=== PATIENT | male | born 1995 | race Caucasian/White ===

== ENCOUNTER 2020-10-10 11:42 | Outpatient (NON) | payer BC, OTHER, SELFPAY ==
[2020-10-10 22:00] LABS: SARS-CoV-2 RNA PCR Positive
== END 2020-10-10 11:43 ==
PROVIDERS: PCP Family Medicine; Visit Provider Physician Assistant
DX: U07.1 COVID-19 (principal)
CPT/HCPCS: 87635; C9803; U0003

== ENCOUNTER 2024-12-11 14:49 | Outpatient (CLI) | payer BC, SELFPAY ==
--- NOTE | ~2024-12-11 | CT_ITS ---
EXAMINATION: CT sinus wo con DATE: 12/11/2024 15:00 INDICATION: Chronic sinusitis TECHNIQUE: Computed tomography (CT) of the paranasal sinuses was performed without intravenous contra st. The dose-length product was 282.66 mGy-cm. Automated exposure control and iterative reconstructio n technique were employed. COMPARISON: None FINDINGS: Leftward nasal septal deviation. Ostiomeatal units are patent. Small mucous retention cyst of the right maxillary sinus. No significant mucoperiosteal reaction. No air-fluid levels. There is a small mucous retention cyst of the right ethmoid sinus. Mastoids are pneumatized. Mild mucosal thick ening of the left maxillary sinus. IMPRESSION: 1. Mild left maxillary sinus disease with small mucous retention cyst of the right maxillary and ethm oid sinuses. Reviewed, dictated and finalized at location L. RAM OR PROJECT ADMINISTRATOR IMPRESSION: 1. Mild left maxillary sinus disease with small mucous retention cyst of the ri ght maxillary and ethmoid sinuses.
== END 2024-12-11 14:50 | disposition home or self-care (01) ==
LOC: MICIMG 14:50
PROVIDERS: PCP Family Medicine; Visit Provider Student in an Organized Health Care Education/Training Program
DX: J32.0 Chronic maxillary sinusitis (principal); J34.1 Cyst and mucocele of nose and nasal sinus
CPT/HCPCS: 70486

== ENCOUNTER 2024-12-17 10:13 | Emergency (ER) | payer BC, SELFPAY ==
[2024-12-17 10:26] VITALS: BP 143/91; PULSE 77; RESP 16; TEMP 37.2; O2SAT 97
[2024-12-17 10:35] LABS: Add Urine Microscopic? NO; Appearance Urine Clear (Clear); Bilirubin Urine Negative (Negative); Blood Urine Negative (Negative); Color Urine Yellow (Yellow); Glucose Urine UA Negative (Negative); Ketones Urine Negative (Negative); Leukocyte Esterase Ur Negative LEU/UL (Negative); Nitrate Urine Negative (Negative); Protein Urine Negative (Negative); Urobilinogen Urine 0.2 mg/dL (<2.0); pH Urine 7.5 (5.0-9.0)
[2024-12-17 10:47] LABS: Eosinophils Percent Auto 0.9 % (0-4.4); Hematocrit 38.1 % (42.0-52.0); Hemoglobin 13.8 g/dL (14.0-18.0); Immature Granulocyte Absolute 0.01 K/mm3 (0.00-0.031); Immature Granulocyte Percent A 0.2 % (0-0.5); Lymphocytes Absolute Auto 1.61 K/mm3 (0.9-3.2); Lymphocytes Percent Auto 37.4 % (18.3-44.2); Mean Corpuscular HGB Conc 36.2 g/dl (32-36); Mean Corpuscular Hemoglobin 31.8 pg (26-34); Mean Corpuscular Volume 87.8 fl (80-100); Mean Platelet Volume 9.5 fl (7.4-10.4); Monocytes Absolute Auto 0.5 K/mm3 (0.1-0.6); Monocytes Percent Auto 11.1 % (2.6-8.5); Neutrophils Absolute Auto 2.2 K/mm3 (1.3-6.7); Neutrophils Percent Auto 50.4 % (45.5-73.1); Platelet Count Result 209 k/mm3 (150-375); Red Blood Count 4.34 M/mm3 (4.6-6.20); White Blood Count 4.3 K/mm3 (4.5-10.0)
--- NOTE | 2024-12-17 10:49 | ED.ABDPAIN ---
HPI - Abdominal Pain General Chief Complaint: Abdominal Pain Stated Complaint: abd pain & bowel problems since 12/14 Time Seen by Provider: 12/17/24 10:17 Source: patient Mode of arrival: ambulatory Limitations: no limitations History of Present Illness HPI narrative: This is a 29-year-old male that presents to the emergency department for mid abdominal pain. Ongoing over the last couple of days. Reports associated loose stools. Denies fevers, vomiting. Related Data Allergies Allergy/AdvReac Type Severity Reaction Status Date / Time No Known Allergies Allergy Verified 12/17/24 10:40 Review of Systems Review of Systems: CONSTITUTIONAL: Denies fever GASTROINTESTINAL: Reports abdominal pain, nausea, and diarrhea. GENITOURINARY: Denies dysuria All systems reviewed & are unremarkable except as noted in HPI and below PMFSH Past Medical History Medical History (Updated 12/17/24 @ 12:17 by Virginia Stringer PA-C) Essential (primary) hypertension (01/02/17) Anxiety Family History Family History Father Hypertension Social History Social History Social History: Single Smoking status: Never smoker Second hand tobacco smoke exposure: No Alcohol intake: current Drinks per week: 2 Substance use: never Substance use type: does not use Living arrangements: with family Occupation/Education: occupation Gender identity (if verbalized by the patient): Male Sexual Orientation (if Verbalized by the Patient): Straight or Heterosexual Exam Narrative: GENERAL: Well-appearing, well-nourished, and in no acute distress. HEAD: Normocephalic, atraumatic. EYES: EOMI. CHEST: Clear to auscultation. No respiratory distress. No wheezes rales or rhonchi HEART: Regular rate and rhythm. No murmur heard. Normal peripheral pulses. ABDOMEN: Soft, nondistended, normal active bowel sounds. Mild tenderness to palpation throughout the right lower abdomen, without guarding EXTREMITIES: Normal range of motion. No edema. SKIN: Warm, dry, no rash. NEURO: No focal deficits. Alert and oriented x3. PSYCH: Normal mood and affect Course Course Emergency Course: patient updated on his workup and agrees with plan of care Consultations Consultation #1: Spoke with Dr. Dueñas. Recommends 3.375 mg dose of Zosyn in the ER. Augmentin 500 mg 3 times daily for 1 week. Follow up in clinic Date: 12/17/24 Vital Signs Vital signs: Vital Signs Temperature 98.9 F 12/17/24 10:26 Pulse Rate 77 12/17/24 10:26 Respiratory Rate 16 12/17/24 10:26 Blood Pressure 143/91 H 12/17/24 10:26 Pulse Oximetry 97 12/17/24 10:26 Oxygen Delivery Room Air 12/17/24 10:26 Temperature 98.9 F 12/17/24 10:26 Pulse Rate 77 12/17/24 10:26 Respiratory Rate 16 12/17/24 10:26 Blood Pressure 143/91 H 12/17/24 10:26 Pulse Oximetry 97 12/17/24 10:26 Oxygen Delivery Room Air 12/17/24 10:26 MDM - Abdominal Pain MDM Narrative Medical decision making narrative: Patient presents the emergency department for mid/right-sided abdominal pain. He is afebrile and nontoxic appearing. Cbc without leukocytosis. Metabolic panel with mild elevation in total bili and ALT, similar to previous labs. Urine without evidence of infection. CT abdomen pelvis indeterminate for appendicitis. Spoke with Dr. Dueñas. Recommends 3.375 mg dose of Zosyn in the ER. Augmentin 500 mg 3 times daily for 1 week. Follow up in clinic. patient updated on his workup and agrees with plan of care. He was given strict return precautions Differential Diagnosis Differential diagnosis: Likely acute appendicitis and other (IBS) Lab Data Attestation: I reviewed the patient's lab results. 12/17/24 10:41 12/17/24 10:41 Labs: Lab Results 12/17/24 12/17/24 Range/Units 10:26 10:41 WBC 4.3 L (4.5-10.0) K/mm3 RBC 4.34 L (4.6-6.20) M/mm3 Hgb 13.8 L (14.0-18.0) g/dL Hct 38.1 L (42.0-52.0) % MCV 87.8 (80-100) fl MCH 31.8 (26-34) pg MCHC 36.2 H (32-36) g/dl RDW 12.0 (11.5-14.5) % Plt Count 209 (150-375) k/mm3 MPV 9.5 (7.4-10.4) fl Immature Gran % (Auto) 0.2 (0-0.5) % Neut % (Auto) 50.4 (45.5-73.1) % Lymph % (Auto) 37.4 (18.3-44.2) % [place] % (Auto) 11.1 H (2.6-8.5) % Eos % (Auto) 0.9 (0-4.4) % Baso % (Auto) 0.0 L (0.2-1.2) % Lymph # (Auto) 1.61 (0.9-3.2) K/mm3 [place] # (Auto) 0.5 (0.1-0.6) K/mm3 Eos # (Auto) 0.0 (0-0.3) K/mm3 Baso # (Auto) 0.0 (0.0-0.1) K/mm3 Abs Immat Gran (auto) 0.01 (0.00-0.031) K/mm3 Absolute Neuts (auto) 2.2 (1.3-6.7) K/mm3 Absolute Nucleated RBC 0.000 (0.0-0.012) K/mm3 Nucleated RBC % 0.0 (0.0-0.2) % Sodium 140 (137-145) mmol/L Potassium 3.9 (3.4-5.0) mmol/L Chloride 102 (98-107) mmol/L Carbon Dioxide 27 (22-30) mmol/L Anion Gap 11 (4-12) mmol/L BUN 13 (9-20) mg/dL Creatinine 0.72 (0.7-1.3) mg/dL Estim Creat Clear Calc 155 ml/min Estimated GFR > 60 (59 - ) Glucose 103 (65-110) mg/dL Calcium 9.6 (8.4-10.2) mg/dL Total Bilirubin 1.8 H (0.2-1.3) mg/dL AST 31 (17-59) U/L ALT 74 H (6-50) U/L Alkaline Phosphatase 48 (38-126) U/L Total Protein 7.0 (6.3-8.2) g/dL Albumin 4.3 (3.5-5.1) g/dL Lipase 40 (23-300) U/L Urine Color Yellow (Yellow) Urine Appearance Clear (Clear) Urine pH 7.5 (5.0-9.0) Ur Specific [place] 1.010 (1.001-1.035) Urine Protein Negative (Negative) mg/dL Urine Glucose (UA) Negative (Negative) mg/dL Urine Ketones Negative (Negative) mg/dL Ur Blood (Man) Negative (Negative) Urine Nitrate Negative (Negative) Urine Bilirubin Negative (Negative) Urine Urobilinogen 0.2 (<2.0) mg/dL Leukocyte Esterase Rfl Negative (Negative) LOLA/UL Imaging Data Radiologist's impression: ITS Impressions Abdomen/Pelvis CT 12/17/24 11:34 IMPRESSION: 1. Appendiceal diameter of 9 mm, which is indeterminate for acute appendicitis. 2. Right inguinal hernia containing fat. Critical Care Time Critical Care Time Critical Care Time: No Discharge Plan Discharge Clinical Impression: Abnormal abdominal CT scan Patient Disposition: Home, Self-Care Condition: Stable Instructions: Antibiotic Form, Abdominal Pain (ED) Additional Instructions: Return to the ER if you experience fever, abdominal pain with nausea and vomiting, you are unable to keep down liquids or solids, or any other symptoms that are concerning to you Remain well hydrated. Take oral antibiotics as prescribed Follow up with general surgery Patient Language: [place] Prescriptions: New amoxicillin-pot clavulanate 500-125 mg tablet 1 tablet PO Q8H 7 Days Qty: 21 0RF No Action dexamethasone 4 mg tablet 4 mg PO BID Qty: 24 0RF Rx Instructions: 4mg tablet PO; 1 and a half tabs BID x4days, then 1 tab BID x4days, then half tab BID x4days Follow-up/Referrals: Julius Maki MD [Primary Care Provider] -
[2024-12-17 10:57] LABS: Alanine Aminotransferase 74 U/L (6-50); Albumin Level 4.3 g/dL (3.5-5.1); Alkaline Phosphatase 48 U/L (38-126); Anion Gap 11 mmol/L (4-12); Aspartate Amino Transferase 31 U/L (17-59); Bilirubin,Total 1.8 mg/dL (0.2-1.3); Blood Urea Nitrogen 13 mg/dL (9-20); Calcium 9.6 mg/dL (8.4-10.2); Carbon Dioxide 27 mmol/L (22-30); Chloride 102 mmol/L (98-107); Estimated CRCL calculation 155 ml/min; Estimated Glomerular Filt Rate > 60; Glucose 103 mg/dL (65-110); Lipase 40 U/L (23-300); Potassium 3.9 mmol/L (3.4-5.0); Sodium 140 mmol/L (137-145)
[2024-12-17 12:26] VITALS: BP 132/77; PULSE 64; RESP 16; TEMP 36.5; O2SAT 98
[2024-12-17] MEDS: ACETAMINOPHEN 500 MG TABLET 1000 MG PO (12:31)
[2024-12-17] MEDS: PIPERACILLN/TAZ 3.375GM/NS50ML 3.375 GM/50 ML BAG IVPB (12:31)
[2024-12-17 12:38] VITALS: BP 137/85; PULSE 70; RESP 20; O2SAT 98
== END 2024-12-17 12:40 | disposition home or self-care (01) ==
PROVIDERS: Emergency Provider Physician Assistant; PCP Family Medicine
DX: R93.3 Abnormal findings on diagnostic imaging of other parts of digestive tract (principal); K40.90 Unilateral inguinal hernia, without obstruction or gangrene, not specified as recurrent; I10 Essential (primary) hypertension
CPT/HCPCS: 36415; 74177; 80053; 81003; 83690; 85025; 96365; 99284; A9270; J2543; Q9967

== ENCOUNTER 2024-12-24 09:32 | Outpatient (CLI) | payer BC, SELFPAY ==
--- NOTE | ~2024-12-24 | CT_ITS ---
CLINICAL INDICATION: Periumbilical abdominal pain COMPARISON: 12/17/2024. TECHNIQUE: Multiple contiguous axial images of the abdomen and pelvis were performed without the admi nistration of intravenous contrast The dose-length product (DLP) was 576.82 mGy-cm. Automated exposure control and iterative reconstruction technique were employed. FINDINGS/OBSERVATIONS: Visualized lower thorax: The bilateral lung bases are clear. The heart is of normal size, without pericardial effusion. Small hiatal hernia is present. Liver: The liver demonstrates homogeneous attenuation and is not enlarged measuring 14 cm in longitudinal di mension. Gallbladder and biliary system: The gallbladder is only minimally distended, and otherwise unremarkable. Pancreas: Limited evaluation of the pancreas secondary to the lack of intravenous contrast. Spleen: The spleen demonstrates homogeneous attenuation and is not enlarged measuring 11 cm in longitudinal d imension. Kidneys: The bilateral kidneys are unremarkable, without hydronephrosis or renal calculi. Adrenal glands: Unremarkable. Gastrointestinal tract: Colonic diverticulosis without surrounding inflammatory change. Fecal stasis within the colon. Appendix: The appendix is within the upper limits of normal for caliber measuring anywhere between 6 and 8 mm ( axial series, images 104 through 120). No significant surrounding inflammatory change. Vasculature: Unremarkable. Lymph nodes: Scattered nonpathologically enlarged and morphologically benign appearing lymph nodes within the retr operitoneum or at the root of the mesentery, a nonspecific finding in a patient of this age. Pelvic structures: The bladder is decompressed, and otherwise unremarkable. The prostate gland is not enlarged. Body wall and musculoskeletal: Small fat-containing umbilical hernia. No significant degenerative disease within the lower thoracic or lumbosacral spine. IMPRESSION: The appendix is within the upper limits of normal for size measuring anywhere from 6 to 8 mm in calib er without surrounding inflammatory change. Small fat-containing umbilical hernia. Reviewed, dictated and finalized at location A. TRUCTION ESTIMATOR IMPRESSION: The appendix is within the upper limits of normal for size measuring anywhere f rom 6 to 8 mm in caliber without surrounding inflammatory change. Small fat-containing umbilical hernia.
--- OUTSIDE RECORDS SUMMARY | 2024-12-24 10:30 | XMS_ITS | Clinical Summary ---
Author Organization [facility] [employer] Address [address] [place] [address] Care Team Providers Care Nurse Practitioner Per Diem Name Role Phone Julius Maki MD Primary Care Provider [phone] Source Comments [facility] [employer],non-owned Affiliates and Associated Physician Practices is amultiple site organization consisting of ambulatory clinics and hospital sitesin [place], [place]. This disclosure is being madepursuant to the Care Everywhere program and may not contain all information available regarding this patient. Last updated 18.[facility] [employer] Allergies No known active allergies Medications * Be aware that medications may not be up to date on this document. Alwaysverify current medications with the patient. Medication Sig Dispensed Refills Start Date End Date Status trimethoprim-sulfamet hoxazole (SEPTRA DS) 800-160 MG tablet Take 1 Tab by mouth 2 times daily. Active hyoscyamine (LEVSIN/SL) 0.125 MG tablet Dissolve 1 Tab under the tongue every 4 hours as needed for Spasms. 120 Tab 5 02/06/2013 Active Active Problems Problem Noted Date Diagnosed Date IBS (irritable bowel syndrome) 02/06/2013 Diarrhea 05/08/2011 Rectal bleeding 12/19/2010 Abdominal pain, generalized 12/19/2010 Social History Tobacco Use Types Packs/Day Years Used Date Smoking Tobacco: Never Assessed Sex and Gender Information Value Date Recorded Sex Assigned at Not on file Gender Identity Not on file Sexual Orientation Not on file Last Filed Vital Signs Vital Sign Reading Time Taken Comments Blood Pressure 106/60 02/06/2013 9:48 AM CDT Pulse - - Temperature - - Respiratory Rate - - Oxygen Saturation - - Inhaled Oxygen Concentration - - Weight 82 kg (180 lb 11.2 oz) 02/06/2013 9:48 AM CDT Height 183.4 cm (6' 0.21 ) 02/06/2013 9:48 AM CD T Body Mass Index 24.37 02/06/2013 9:48 AM CDT Plan of Treatment Health Maintenance Due Date Last Done Comments HIV SCREENING 2009 HEPATITIS C SCREENING 06/30/2012 DTAP/TDAP/TD VACCINES (1 - Tdap) 2013 HEPATITIS B VACCINE (1 of 3 - 19+ 3-dose series) 2013 COVID-19 VACCINE (1 - 2023-2 5 season) 2024 INFLUENZA VACCINE (#1) 2024 DEPRESSION SCREENING 10/21/2024 ZOSTER VACCINE (1 of 2) 2044 HIB VACCINE Aged Out No longer eligi ble based on patient's age to complete this topic HPV VACCINE Aged Out No longer eligi ble based on patient's age to complete this topic MENINGOCOCCAL (Group B) VACCINE Aged Out No longer eligible based on patient's age to complete this topic MENINGOCOCCAL VACCINE Aged Out No kristopher maricruz eligible based on patient's age to complete this topic PNEUMOCOCCAL VACCINE Aged Out No long er eligible based on patient's age to complete this topic Care Teams Nurse Practitioner Per Diem Relationship Specialty Start Date End Date Julius Maki MD [address] [place] [address] PCP - General Family Medicine 12/12/12
--- OUTSIDE RECORDS SUMMARY | 2024-12-24 10:30 | XMS_ITS | Encounter Summary ---
Author Organization [facility] Address [address] [place] [address] Care Team Providers Care Manager Department Name Role Phone Julius Maki MD Primary Care Provider [phone] Encounter Details Date Type Department Care Team (Late st Contact Info) Description 04/26/2023 Lab Requisition [facility] - DermPath Lab [address] [place] [id number] Ghulam Rios MD [address] [place] [address] Social History Tobacco Use Types Packs/Day Years Used Date Smoking Tobacco: Never Assessed Sex and Gender Information Value Date Recorded Sex Assigned at Not on file Gender Identity Not on file Sexual Orientation Not on file documented as of this encounter Plan of Treatment Not on file documented as of this encounter Procedures Procedure Name Priority Date/Time Associated Diagnosis Comments DERMATOPATHOLOGY Routine 04/26/2023 12:0 0 AM CDT documented in this encounter Results * DERMATOPATHOLOGY (04/26/2023 12:00 AM CDT) Case Report Dermatopathology Report Case: [id number] Authorizing Provider: Ghulam Rios MD Collected: 04/26/2023 12:00 AM Ordering Location: [facility] DermPath Lab Received: 04/27/2023 08:39 AM Pathologist: Xiomara Lilly MD Specimens: A) - Skin, right scalp B) - Skin, post scalp 12:22 PM CDT DERMATOPATHOLOGY LABORATORY Final Diagnosis Specimen A. SKIN, right scalp: INTRADERMAL MELANOCYTIC NEVUS (D22.4) Specimen B. SKIN, post scalp: COMPOUND MELANOCYTIC NEVUS (D22.4) 3 12:22 PM CDT DERMATOPATHOLOGY LABORATORY Clinical History A: Nevus. Path# [id number] B: Nevus. Path# [id number] 3 12:22 PM CDT DERMATOPATHOLOGY LABORATORY Gross Description Specimen A: Received is one formalin filled container labeled with the patient's name and designated right scalp. The specimen consists of a shave biopsy measuring [id number] and another piece of tissue measuring [id number]. Jar 0. Specimen B: Received is one formalin filled container labeled with the patient's name and designated post scalp. The specimen consists of a shave biopsy measuring [id number]. Jar 0. 3 12:22 PM CDT DERMATOPATHOLOGY LABORATORY Microscopic Description Specimen A. SKIN, right scalp: There are nests of cytologically bland melanocytes within the dermis that mature with depth. Specimen B. SKIN, post scalp: There are nests of melanocytes at the dermal-epidermal junction and within the dermis. 3 12:22 PM CDT DERMATOPATHOLOGY LABORATORY Disclaimer An external and internal positive and negative controls are appropriate for the histochemical, immunohistochemical and immunofluorescence stain(s) in this case (if any), except where stated explicitly. The performance characteristics of the stain(s) cited in this report were developed and its performance characteristic determined by the Dermatopathology Laboratory at [facility], directed by Dr. Swapnil Dumont. These tests need not be, and therefore are not, approved by the [place] Food and Drug Administration. The tests are used for clinical purposes. Billing Codes Specimen Charges Stain Charges 63278 72018 1 1 3 12:22 PM CDT DERMATOPATHOLOGY LABORATORY Embedded Images 3 12:22 PM CDT DERMATOPATHOLOGY LABORATORY Pathology/Cytology TISSUE SPECIMEN FROM SKIN / Unknown 04/26/2023 04/27/2023 8:39 AM CDT Miscellaneous samples (specimen) TISSUE SPECIMEN FROM SKIN / Unknown 04/26/2023 04/27/2023 8:39 AM CDT Ghulam Rios MD LAB - PATHOLOGY/CYTO LOGY ORDERABLES DERMATOPATHOLOGY LABORATORY [facility] - Department of Dermatology [address], [address] [phone] documented in this encounter Visit Diagnoses Not on filedocumented in this encounter Care Teams Manager Department Relationship Specialty Start Date End Date Julius Maki MD [address] [place] [id number] PCP - General Family Medicine 12/12/12 documented as of this encounter
--- OUTSIDE RECORDS SUMMARY | 2024-12-24 10:30 | XMS_ITS | Referral Summary ---
Author Organization [facility] [employer] Address [address] [place] [address] Care Team Providers Care Resource Development Manager Name Role Phone Julius Maki MD Primary Care Provider [phone] Source Comments [facility] [employer],non-owned Affiliates and Associated Physician Practices is amultiple site organization consisting of ambulatory clinics and hospital sitesin [place], [place], [place] and [place]. This disclosure is being madepursuant to the Care Everywhere program and may not contain all information available regarding this patient. Last updated 18.[facility] [employer] Allergies No known active allergies Medications * [...] 02/06/2013 9:48 AM CDT Plan of Treatment Not on file Care Teams Resource Development Manager Relationship Specialty Start Date End Date Julius Maki MD [address] [place], [place] [id number] PCP - General Family Medicine 12/12/12
[2024-12-24 12:42] LABS: Basophils Percent Auto 0.2 % (0.2-1.2); Eosinophils Absolute Auto 0.1 K/mm3 (0-0.3); Eosinophils Percent Auto 1.1 % (0-4.4); Hematocrit 40.6 % (42.0-52.0); Hemoglobin 14.2 g/dL (14.0-18.0); Immature Granulocyte Absolute 0.01 K/mm3 (0.00-0.031); Immature Granulocyte Percent A 0.2 % (0-0.5); Lymphocytes Absolute Auto 1.96 K/mm3 (0.9-3.2); Lymphocytes Percent Auto 43.9 % (18.3-44.2); Mean Corpuscular Hemoglobin 31.7 pg (26-34); Mean Corpuscular Volume 90.6 fl (80-100); Mean Platelet Volume 9.7 fl (7.4-10.4); Monocytes Absolute Auto 0.4 K/mm3 (0.1-0.6); Monocytes Percent Auto 8.1 % (2.6-8.5); Neutrophils Absolute Auto 2.1 K/mm3 (1.3-6.7); Neutrophils Percent Auto 46.5 % (45.5-73.1); Platelet Count Result 243 k/mm3 (150-375); Red Blood Count 4.48 M/mm3 (4.6-6.20); Red Cell Distribution Width 12.3 % (11.5-14.5); White Blood Count 4.5 K/mm3 (4.5-10.0)
== END 2024-12-24 09:33 | disposition home or self-care (01) ==
LOC: ANHLAB 09:43 → ANHIMG 10:03
PROVIDERS: PCP Family Medicine; Visit Provider Surgery
DX: K42.9 Umbilical hernia without obstruction or gangrene (principal); R93.5 Abnormal findings on diagnostic imaging of other abdominal regions, including retroperitoneum
CPT/HCPCS: 36415; 74176; 85025

== ENCOUNTER 2025-02-19 00:51 | Day surgery (SDC) | payer BC, SELFPAY ==
[2025-02-10 14:46] VITALS: BMI 29.0
--- NOTE | 2025-02-10 15:09 | PC.NURSE ---
Report to the Outpatient Waiting Room, entrance under the green pavilion located off [facility], at time 0645 on date 02/19/25. Planned Procedure Time: 0845.? Time changes happen often and if your time is changed the preop area will call you the afternoon before. - You and your visitor will be asked to self-screen and do not enter if you have any COVID symptoms. Please call surgeon if you need to reschedule. - A mask is optional within the hospital at this time. Patients may have clear liquids (water, carbonated beverages, clear teas, apple juice) until 3 hours prior to surgery with a maximum of 20 ounces. - No food from midnight until time of surgery and no smoking, or chewing tobacco (or any form of nicotine). No chewing gum, candy or mints. Take only the following medications with a SIP of water on the morning of surgery: N/A DO NOT STOP ANY OF YOUR OTHER PRESCRIPTION MEDICATIONS PRIOR TO SURGERY EXCEPT THE FOLLOWING Hold all vitamins and supplements for 3 days per anesthesiologist. Medications to discontinue per physician N/A Please no make-up, nail czech, hairspray, perfume, deodorant, or body powder the day of surgery.? No jewelry (including any body piercings) or valuables the day of surgery, leave them at home.? Please take a shower or bath the night before, or the morning of, surgery with an antibacterial soap.? Wear comfortable, loose fitting clothing.? - Jewelry must be removed prior to entering the operating room.? Rings and piercings that are not removed may be cut off. - The hospital will not accept responsibility for valuables.? - Please leave all valuables, including medications, at home the day of surgery. If you are going home after surgery, a licensed starting gate driver must drive you home.? - NO public transportation without another adult if you receive anesthesia. - We recommend that an adult stay with you for 24 hours following discharge. - We also recommend that you do not drive, make important decision, drink alcoholic beverages, or take any drugs that were not prescribed by your health care provider for at least 24 hours after your discharge time. Follow any additional instructions given to you from your surgeon. Telephone instructions given to Justin and asked if any additional questions and then verbalized understanding. Patient advised to call surgeon office or pre surgery nurse liaison [phone] if any additional questions.
[2025-02-19] VITALS (9 sets, daily range): BP systolic 110–129; BP diastolic 60–83; PULSE 60–84; RESP 10–20; TEMP 36.3; O2SAT 96–100; BMI 29.0
--- OUTSIDE RECORDS SUMMARY | 2025-02-19 00:57 | XMS_ITS | Clinical Summary ---
Author Organization [facility] [employer] Address [address] [place] [address] Care Team Providers Care Electrical Products Engineer Name Role Phone Julius Maki MD Primary Care Provider [phone] Source Comments [facility] [employer],non-owned Affiliates and Associated Physician Practices is amultiple site organization consisting of ambulatory clinics and hospital sitesin [place], [place] and [place]. This disclosure is being madepursuant to the Care Everywhere program and may not contain all information available regarding this patient. Last updated 18.[facility] [employer] Allergies No known active allergies Medications * Be aware that medications may not be up to date on this document. Alwaysverify current medications with the patient. trimethoprim-cárdenas lfamethoxazole (SEPTRA DS) 800-160 MG tablet Take 1 [...] Recorded Sex Assigned at Not on file Legal Sex Male 10:02 AM FUNERAL GREETER Gender Identity Not on file Sexual Orientation [...] VACCINE (1 - 2023-2 5 season) 2024 DEPRESSION SCREENING 10/21/2024 INFLUENZA VACCINE (Season Ended) 2025 ZOSTER VACCINE (1 of 2) 2044 HIB VACCINE Aged Out No longer eligi ble based on patient's age to complete this topic HPV VACCINE Aged Out No longer eligi ble based on patient's age to complete this topic MENINGOCOCCAL (Group B) VACC INE SHARED DECISION-MAKING Aged Out No longer eligibl e based on patient's age to complete this topic MENINGOCOCCAL GROUPS A/C/Y/W VACCINE Aged Out No longer eligible b ased on patient's age to complete this topic PNEUMOCOCCAL VACCINE Aged Out No long er eligible based on patient's age to complete this topic Insurance ANTHEM Care Teams Electrical Products Engineer Relationship Specialty Start Date End Date Julius Maki MD [address] [place] [id number] PCP - General Family Medicine 12/12/12
--- OUTSIDE RECORDS SUMMARY | 2025-02-19 00:57 | XMS_ITS | Encounter Summary ---
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 Role Phone Julius Maki MD Primary Care Provider [phone] Encounter Details Date Type Department Care Team (Late st Contact Info) Description 04/26/2023 Lab Requisition [facility] - Derm[facility] Lab [address] [place] [id number] Ghulam Rios MD [address] [facility] [place] [address] Social History Tobacco Use Types Packs/Day Years Used Date Smoking Tobacco: Never Assessed Sex and Gender Information Value Date Recorded Sex Assigned at Not on file 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 Gender Identity Not on file Sexual Orientation Not on file documented as of this encounter Plan of Treatment Not on file documented as of this encounter Procedures Procedure Name Priority Date/Time Associated Diagnosis Comments DERMATOPATHOLOGY Routine 04/26/2023 12:0 0 AM CDT documented in this encounter Results * DERMATOPATHOLOGY (04/26/2023 12:00 AM CDT) Case Report Dermatopathology Report Case: [id number] Authorizing Provider: Ghulam Rios MD Collected: 04/26/2023 12:00 AM Ordering Location: [facility] Received: 04/27/2023 08:39 AM Pathologist: Xiomara Lilly MD Specimens: A) - Skin, right scalp B) - Skin, post scalp 12:22 PM CDT DERMATOPATHOLOGY LABORATORY Final Diagnosis Specimen A. SKIN, right scalp: INTRADERMAL MELANOCYTIC NEVUS (D22.4) Specimen B. SKIN, post scalp: COMPOUND MELANOCYTIC NEVUS (D22.4) 3 12:22 PM T DERMATOPATHOLOGY LABORATORY Clinical History A: Nevus. Path# [id number] B: Nevus. Path# [id number] 3 12:22 PM T DERMATOPATHOLOGY LABORATORY Gross Description Specimen A: Received is one formalin filled container labeled with the patient's name and designated right scalp. The specimen consists of a shave biopsy measuring [id number] and another piece of tissue measuring 4s3v3pc. Jar 0. Specimen B: Received is one formalin filled container labeled with the patient's name and designated post scalp. The specimen consists of a shave biopsy measuring [id number]. Jar 0. 3 12:22 PM T DERMATOPATHOLOGY LABORATORY Microscopic Description Specimen A. SKIN, right scalp: There are nests of cytologically bland melanocytes within the dermis that mature with depth. Specimen B. SKIN, post scalp: There are nests of melanocytes at the dermal-epidermal junction and within the dermis. 3 12:22 PM T DERMATOPATHOLOGY LABORATORY Disclaimer An external and internal positive and negative controls are appropriate for the histochemical, immunohistochemical and immunofluorescence stain(s) in this case (if any), except where stated explicitly. The performance characteristics of the stain(s) cited in this report were developed and its performance characteristic determined by the Dermatopathology Laboratory at [facility], directed by Dr. Swapnil Dumont. These tests need not be, and therefore are not, approved by the [place] Food and Drug Administration. The tests are used for clinical purposes. Billing Codes Specimen Charges Stain Charges 96929 [id number] 1 1 3 12:22 PM CDT DERMATOPATHOLOGY LABORATORY Embedded Images 3 12:22 PM CDT DERMATOPATHOLOGY LABORATORY Pathology/Cytology TISSUE SPECIMEN FROM SKIN / Unknown 04/26/2023 04/27/2023 8:39 AM CDT Miscellaneous samples (specimen) TISSUE SPECIMEN FROM SKIN / Unknown 04/26/2023 04/27/2023 8:39 AM CDT us Ghulam Rios MD LAB - PATHOLOGY/CYTOLOGY ORDER LOPEZ Final Result DERMATOPATHOLOGY LABORATORY [facility] - Department of Dermatology [facility] Specialized Medicine [address] [place] [address], [address] [phone] documented in this encounter Visit Diagnoses Not on filedocumented in this encounter Care Teams Tree Cutter Relationship Specialty Start Date End Date Julius Maki MD [address] [place] [address] PCP - General Family Medicine 12/12/12 documented as of this encounter
[2025-02-19] MEDS: OXYMETAZOLINE HCL 0.05% NAS 15 ML BTL (*BKC) 2 SPRAY NASAL ×3 (07:00→07:35)
[2025-02-19] MEDS: ACETAMINOPHEN 500 MG TABLET 1000 MG PO (07:00)
--- NOTE | 2025-02-19 07:05 | P.PNAN_ITS ---
Anes - Initial Pre Proc Eval Procedure: Operation Date: 02/19/25 08:45 Proposed Procedures p Bilateral Inferior Turbinate Reduction, Bilateral Hilary Bullosa Reduction, Cryotherapy of Posterior Nasal Nerve Bilateral - Nella Pascual MD s Septoplasty - Nella Pascual MD Date/Time: 02/19/25 07:05 Surgeon: Nella Pascual MD Pre Op Diagnosis: chronic sinusitis, deviated nasal septum, Patient Data Age: 29 Gender: M Height: 1.85 m Weight: 100 kg Allergies Allergy/AdvReac Type Severity Reaction Status Date / Time No Known Allergies Allergy Verified 02/10/25 14:45 Home Medications ?Medication ?Instructions ?Recorded ?Confirmed ?Type No Home Medications 02/10/25 02/10/25 History Patient hx anesthesia problems: none Family hx anesthesia problems: none Results Review: All pre-operative results and documents have been reviewed as part of the pre- operative evaluation. [facility] Past Medical History Medical History (Updated 01/15/25 @ 15:36 by Nella Pascual MD) Chronic vasomotor rhinitis Hilary bullosa Post-nasal drip Hypertrophy of inferior nasal turbinate Deviated nasal septum Essential (primary) hypertension (01/02/17) Anxiety Family History Family History Father Hypertension Social History Social History (Updated 01/04/25 @ 08:48 by Jayy Babcock MA) Social History: Single Smoking status: Never smoker Second hand tobacco smoke exposure: No Alcohol intake: current Drinks per week: 2 Substance use: never Substance use type: does not use Current Housing: Decline to Answer Concerned About Future Housing: Decline to Answer Difficulty Paying Gas/Electric Bills: Decline to Answer Difficulty Paying for Meds: Decline to Answer Currently Unemployed: Decline to Answer Education: Decline to Answer Difficulty w/ Childcare or Family Care: Decline to Answer Living arrangements: with family Occupation/Education: occupation Gender identity (if verbalized by the patient): Male Sexual Orientation (if Verbalized by the Patient): Straight or Heterosexual Anes - Eval Final PreProcedure Day of Procedure 02/19/25 07:05 Patient weight: overweight Heart: regular rate and rhythm Lungs: clear to auscultation Airway: Mallampati scale class II Neurological: alert and oriented Last oral intake: >/= 8 hours ASA classification: II Emergent: no Anesthetic plan: proceed Anesthesia type and monitoring: general ETT and standard monitoring Results Review: All pre-operative results and documents have been reviewed as part of the pre- operative evaluation. Informed Consent: The patient's anesthetic plan and its attendant risks and benefits were discussed with the patient/family/POA. Questions were solicited and answers provided to the satisfaction of the patient/family/POA.
--- NOTE | 2025-02-19 07:18 | PM.IMHP ---
H&P: HPI History of Present Illness Date/Time: 02/19/25 07:18 Chief Complaint: Nasal congestion PMFSH Past Medical History Medical History (Updated 01/15/25 @ 15:36 by Nella Pascual MD) Chronic vasomotor rhinitis Maurice bullosa Post-nasal drip Hypertrophy of inferior nasal turbinate Deviated nasal septum Essential (primary) hypertension (01/02/17) Anxiety Family History Family History Father Hypertension Social History Social History (Updated 01/04/25 @ 08:48 by Jayy Babcock MA) Social History: Single Smoking status: Never smoker Second hand tobacco smoke exposure: No Alcohol intake: current Drinks per week: 2 Substance use: never Substance use type: does not use Current Housing: Decline to Answer Concerned About Future Housing: Decline to Answer Difficulty Paying Gas/Electric Bills: Decline to Answer Difficulty Paying for Meds: Decline to Answer Currently Unemployed: Decline to Answer Education: Decline to Answer Difficulty w/ Childcare or Family Care: Decline to Answer Living arrangements: with family Occupation/Education: occupation Gender identity (if verbalized by the patient): Male Sexual Orientation (if Verbalized by the Patient): Straight or Heterosexual Meds Home Medications and Allergies Home Medications ?Medication ?Instructions ?Recorded ?Confirmed ?Type No Home Medications 02/10/25 02/10/25 History Allergies Allergy/AdvReac Type Severity Reaction Status Date / Time No Known Allergies Allergy Verified 02/10/25 14:45 Assessment and Plan Assessment and plan (1) Deviated nasal septum: Code(s): J34.2 - Deviated nasal septum Status: Acute (2) Hypertrophy of inferior nasal turbinate: Code(s): J34.3 - Hypertrophy of nasal turbinates Status: Acute (3) Maurice bullosa: Code(s): J34.89 - Other specified disorders of nose and nasal sinuses Status: Acute (4) Chronic vasomotor rhinitis: Code(s): J30.0 - Vasomotor rhinitis Status: Acute Plan 29-year-old male with left-sided deviated nasal septum, hypertrophy of nasal turbinates and posterior rhinorrhea - exam:hypertrophy of nasal turbinates left-sided deviated nasal septum, erythematous nasal mucosa CT Sinuses : 12/11/2024:Leftward nasal septal deviation. Ostiomeatal units are patent. Small mucous retention cyst of the right maxillary sinus. No significant mucoperiosteal reaction. No air-fluid levels. There is a small mucous retention cyst of the right ethmoid sinus. Mastoids are pneumatized. Mild mucosal thickening of the left maxillary sinus. I personally reviewed CT images with the patient we will schedule septoplasty bilateral inferior turbinates reduction bilateral maurice reduction cryotherapy of the posterior nasal nerve specific risks of septoplasty including septal perforation saddle nose deformity intranasal adhesions bleeding infection pain were discussed with the patient other alternatives including top topical nasal steroids were discussed with the patient. At this point patient prefers to go ahead for surgery which will be scheduled in a timely fashion - ipratropium bromide was sent to pharmacy and the patient will call me within 10 days tell me how far he got better with the topical ipratropium bromide
--- NOTE | 2025-02-19 07:19 | WPDHPUPDATE1 ---
History and Physical Update Update Date/Time: 02/19/25 07:19 History and Physical has been reviewed, including an updated exam of the patient. There are NO changes in the patient's condition. Risks, benefits, and alternatives have been discussed and questions answered. Patient agrees to proceed with procedure. 29-year-old male with left-sided deviated nasal septum, hypertrophy of nasal turbinates and posterior rhinorrhea - exam:hypertrophy of nasal turbinates left-sided deviated nasal septum, erythematous nasal mucosa CT Sinuses : 12/11/2024:Leftward nasal septal deviation. Ostiomeatal units are patent. Small mucous retention cyst of the right maxillary sinus. No significant mucoperiosteal reaction. No air-fluid levels. There is a small mucous retention cyst of the right ethmoid sinus. Mastoids are pneumatized. Mild mucosal thickening of the left maxillary sinus. I personally reviewed CT images with the patient we will schedule septoplasty bilateral inferior turbinates reduction bilateral maurice reduction cryotherapy of the posterior nasal nerve specific risks of septoplasty including septal perforation saddle nose deformity intranasal adhesions bleeding infection pain were discussed with the patient other alternatives including top topical nasal steroids were discussed with the patient. At this point patient prefers to go ahead for surgery which will be scheduled in a timely fashion - ipratropium bromide was sent to pharmacy and the patient will call me within 10 days tell me how far he got better with the topical ipratropium bromide
[2025-02-19] MEDS: LACTATED RINGERS 1,000 ML 30 ML IV CONT (07:35)
[2025-02-19] MEDS: ceFAZolin 2 GM/D5W 50 ML 2 GM/50 ML BAG IVPB (08:31)
[2025-02-19] MEDS: LIDO 1%/EPINEPHRINE 1:100,000 50 ML VIAL INFILTRATE (08:59)
[2025-02-19] MEDS: COCAINE HCL (*CRX) 4% TOP SOLN 4 ML VIAL 1 APPLIC TOPICAL (09:00)
[2025-02-19] MEDS: ceFAZolin SODIUM 1 GM VIAL (09:01)
[2025-02-19] MEDS: methylPREDNISolone ACETATE 40 MG/ML VIAL IM (09:03)
[2025-02-19] MEDS: MUPIROCIN 2% OINT 22 GM TUBE 1 APPLIC TOPICAL (11:05)
--- NOTE | 2025-02-19 11:45 | P.OP_ITS ---
Procedure Note - Detailed Date of Procedure 02/19/25 Pre-op Diagnosis Hypertrophy of nasal turbinates,Deviated nasal septum,Vasomotor rhinitis,bilateral maurice bullosa Post-op Diagnosis Same Procedure Performed ? Endoscopic septoplasty ? Bilateral inferior turbinate reduction (turbinoplasty) ? Therapeutic fracture of the inferior turbinates bilaterally. ? Cryotherapy of Vidian nerve bilaterally. ? Nasal endoscopy with removal of maurice bullosa bilateral Surgeon Nella Pascual MD Anesthesia General Description of Procedure DESCRIPTION OF PROCEDURE: The patient was seen in the preoperative area, informed consent was checked and confirmed. The patient was taken to the operating room, sedated and placed under general anesthesia with an ET. Eyes were taped and were prepped and draped in the usual sterile fashion. The nose was examined, and the left anterior septum was injected with 1% lidocaine with 1:100,000 epinephrine. Simone incision was made and a mucoperichondrial flap was elevated to expose the quadrangular cartilage and bony septum. Incision was then made anteriorly on the quadrangular cartilage to elevate the contralateral mucoperichondrial flap. The deviated quadrangular cartilage was excised . At least 1 cm of dorsal and caudal strut of quadrangular cartilage was left in place. We resected the deviated bony septum with a [place] and a pituitary forceps. After adequate resection of the posterior-inferior bony septum, the mucoperichondrial Flap was laid back in anatomic position. Attention was turned to cryotherapy with identification of basal lamella of the middle turbinate bilaterally. Starting with the left side, ClariFix cryoprobe was inserted into the left nasal cavity, and a probe was placed on the basal lamella of the middle turbinate, the ClariFix valve was opened and freezing of the vidian nerve for 30 seconds was performed. The valve was closed, Ice was allowed to melt down for another 30 seconds, then the ClariFix cryoprobe was removed in atraumatic fashion. We turned to the right side and in similar fashion ClariFix cryoprobe was inserted into the nasal cavity, the tip of the probe was placed through the basal lamella of the middle turbinate, the valve was opened, freezing of the vidian nerve for 30 seconds was performed, valve was closed, and the ice was allowed to melt down for another 30 seconds, ClariFix probe was removed in atraumatic fashion.? The right maurice bullosa was resected with a shaver. The lateral wall of the maurice bullosa was resected with care taken to protect its medial wall and middle turbinate attachment to the lateral nasal wall and the skull base.? The left? ?maurice bullosa was resected with a shaver. The lateral wall of the maurice bullosa was resected with care taken to protect its medial wall and middle turbinate attachment to the lateral nasal wall and the skull base. We proceeded with submucosal inferior turbinate reduction, starting on the right side, a stab incision was made anterior mucosa of inferior turbinate. Submucosal pocket was created along the length of the inferior turbinate and the microd ebrider blade 2.5mm thick was introduced anteriorly and into the whole submucosal pocket. Microdebrider was then used to remove the hypertrophied bony parts of anterior turbinate head and soft tissue with the outer layer intact. The residual inferior turbinate was then out fractured using Boies elevator. We proceeded to the left side. A stab incision was made on the anterior mucosa of inferior turbinate. Submucosal pocket was created along the length of the inferior turbinate and the microdebrider blade 2.5mm thick was introduced anteriorly and into the whole submucosal pocket. Microdebrider was then used to remove the hypertrophied bony parts of anterior turbinate head and soft tissue with the outer layer intact. The residual inferior turbinate was then out fractured using Boies elevator. Posisep absorbable sponges sponges were placed ethmoid cavities bilaterally and infiltrated with saline. The nose was then suctioned clean and at this point the care of the patient was then transferred to the anesthesiologist where the patient emerged from general anesthesia without complication. Estimated Blood Loss 15 (ml) Packing Yes (absorbable packing) Complications No immediate complications Condition Stable Disposition PACU [facility] Billing Surgery - Charge Forward: Surgery Billing
[2025-02-19] MEDS: fentaNYL CITRATE INJ (*CRX) 100 MCG/2 ML VIAL 25 MCG IV PUSH ×4 (12:14→12:30)
[2025-02-19] MEDS: oxyCODONE HCL (*CRX) 5 MG TAB IR PO (12:48)
== END 2025-02-19 13:45 | disposition home or self-care (01) ==
PROVIDERS: PCP Family Medicine; Visit Provider Otolaryngology Otolaryngology/Facial Plastic Surgery
PROC: (CPT 30520; principal; 2025-02-19 08:45)
PROC: (CPT 30520; 2025-02-19 08:45)
DX: J34.3 Hypertrophy of nasal turbinates (principal); J34.2 Deviated nasal septum; J30.0 Vasomotor rhinitis; J34.89 Other specified disorders of nose and nasal sinuses
CPT/HCPCS: 30520; 30140; 31243; 31240; A9270; C2618; J0330; J0690; J1010; J1100; J2004; J2250; J2405; J2704; J3010; J7050; J7120